=== PATIENT | female | born 1995 | race Caucasian/White ===

== ENCOUNTER 2022-07-12 12:46 | Emergency (ER) | payer OTHER, MEDICAID, SELFPAY ==
[2022-07-12 12:56] VITALS: BP 196/142; PULSE 102; RESP 20; O2SAT 98
[2022-07-12 13:00] VITALS: BP 195/125; PULSE 94; RESP 15; O2SAT 98
[2022-07-12 13:04] VITALS: BP 196/142; PULSE 102; RESP 18; TEMP 36.6; O2SAT 99; BMI 28.3
--- NOTE | 2022-07-12 13:21 | ED.EXTPRO ---
HPI - Extremity Problem General Chief complaint: Extremity Problem,Nontraumatic Stated complaint: numb both hands RT armpit swollen T-14 Time Seen by Provider: 07/12/22 13:14 Source: patient Mode of arrival: Ambulatory Limitations: no limitations History of Present Illness HPI Narrative: The patient complains of bilateral, intermittent, finger tingling. He occasionally has tingling, awakening from sleep. He works at a [employer]. He developed tingling at work. He occasionally has tingling at rest. He is right-hand dominant. There is no significant difference in symptoms between the left and right hand. He is no significant neck pain associated with a tingling. He does have pain in the right axilla. There is no weakness to the upper extremities. He has a prior history of trauma/concussion. No obvious history of neck injury. Related Data Allergies Allergy/AdvReac Type Severity Reaction Status Date / Time No Allergy Information Allergy Verified 07/12/22 13:04 Available Review of Systems Review of Systems ROS Unobtainable: All systems reviewed & are unremarkable except as noted in HPI and below Patient History Social History Smoking Status: Current every day smoker Smoking Status: Current every day smoker tobacco type: vaping Substance Use Type: does not use Exam Initial Vital Signs Initial Vital Signs: Vital Signs Temperature 97.8 F 07/12/22 13:04 Pulse Rate 102 H 07/12/22 13:04 Respiratory Rate 18 07/12/22 13:04 Blood Pressure 196/142 H 07/12/22 13:04 Pulse Oximetry 99 07/12/22 13:04 Oxygen Delivery Method Room Air 07/12/22 13:04 Const General: cooperative, healthy appearing and comfortable [facility] Head: normal to inspection, normocephalic and atraumatic Neck Neck: normal visual inspection, full ROM and No tender Back/Spine/Pelvis Back: normal to inspection and No back tenderness Skin General: no rashes or lesions noted Neuro General: patient alert, patient awake, patient oriented x3 and no focal motor deficits Sensory Exam: no sensory deficits noted Other: Tinel's is equivocal in both upper extremities. Phalen's test is negative. Extrem General: normal to inspection and full ROM Other: No palpable abnormalities in the right axilla where he complained of pain. No masses. No laxity to the right shoulder. No restriction of motion. Psych Mental Status: mental status grossly normal Course Course Course Narrative: The patient was placed in bilateral wrist splints for CTS. He is neurovascularly intact with splints in place. The splints were placed by his nurse. The patient is on BP meds. He had not taken his medications prior to arrival, he was extremely hypertensive. His blood pressure is improving with the patient taking his home medications. We discussed being compliant with medications and reviewing his blood pressure treatment when he sees his doctor regarding his wrists. Orders Ordered: ED Orders 07/12/22 13:09 EKG-12 Lead Routine Vital Signs Vital signs: Vital Signs - 8 hr 07/12/22 13:04 Temperature 97.8 F Pulse Rate 102 H Respiratory Rate 18 Blood Pressure 196/142 H Pulse Oximetry 99 Oxygen Delivery Method Room Air Discharge Plan Departure Patient Disposition: Home Clinical Impression: Bilateral carpal tunnel syndrome, Benign essential HTN Instructions: Carpal Tunnel Syndrome Activity Restrictions/Additional Instructions: Use the splints when working and when sleep. Advil 2 tabs every 6 hours. If this does not help, talk to your PCM about a dose of steroids. Talk to your PCM about nerve conduction studies on both arms. If you develop severe, persistent, numbness and weakness in her arms, you need additional evaluation of your neck. Return here as needed. Referrals: Pauline Venegas ARNP [Primary Care Provider] - Stand Alone Forms: Patient Portal/API, Work Release Note
[2022-07-12 13:30] VITALS: PULSE 96; RESP 21; O2SAT 97
[2022-07-12 13:31] VITALS: BP 222/122; PULSE 92; RESP 17; O2SAT 97
== END 2022-07-12 14:09 | disposition home or self-care (01) ==
PROVIDERS: Emergency Provider Emergency Medicine; PCP Nurse Practitioner Family
DX: G56.03 Carpal tunnel syndrome, bilateral upper limbs (principal); I10 Essential (primary) hypertension; F17.200 Nicotine dependence, unspecified, uncomplicated
CPT/HCPCS: 93005; 99281; 99282

== ENCOUNTER 2023-05-10 12:10 | Emergency (ER) | payer OTHER, MEDICAID, SELFPAY ==
[2023-05-10 12:12] VITALS: BP 205/125; PULSE 91; RESP 14; TEMP 37.2; O2SAT 99; BMI 28.3
--- NOTE | 2023-05-10 12:24 | ED_ITS ---
<Statement entered by Alvarez Diggs MD - 05/10/23 18:12> I was immediately available in the department for consultation. Documentation has been reviewed. I agree with assessment and plan. HPI - General Adult General Chief complaint: Neck Pain/Injury Stated complaint: severe pain rt side of head and neck Time Seen by Provider: 05/10/23 12:15 History of Present Illness HPI narrative: 27-year-old female presents to the ED with 9 months of right-sided neck pain and headache. Patient states that she is unable to go to her PCP due to financial reasons and therefore presents to the ED. patient has not been evaluated until now for this problem. Patient has been taking Excedrin with no relief. Patient reports exacerbation of the pain with head movements and turning to the right. Patient states that this 1st started when she fell back 9 months ago from a mechanical fall. Patient is also hypertensive and has not been taking losartan, having run out of the prescription. Patient did restart the losartan 3 days ago. Patient also takes exogenous testosterone. Related Data Previous Rx's Medication Instructions Recorded cyclobenzaprine 10 mg tablet 10 mg PO TID PRN muscle spasm 7 05/10/23 days #21 tabs Allergies Allergy/AdvReac Type Severity Reaction Status Date / Time No Allergy Information Allergy Verified 05/10/23 12:22 Available Review of Systems Constitutional Constitutional: Denies chills, Denies fatigue, Denies fever(s), Denies frequent falls, Reports headache(s), Denies lethargy and Denies weakness Eyes Eyes: Denies change in vision, Denies eye discharge, Denies irritation and Denies loss of vision ENT Ears, Nose, Mouth, and Throat: Denies change in voice, Denies dizziness, Reports headache(s), Reports neck pain, Denies sore throat and Denies throat swelling Cardiovascular Cardiovascular: Denies chest pain, Denies irregular heart rhythm, Denies lightheadedness, Denies palpitations, Denies dyspnea, Denies dyspnea on exertion and Denies orthopnea Respiratory Respiratory: Denies cough, Denies dyspnea, Denies dyspnea on exertion and Denies wheezing Gastrointestinal Gastrointestinal: Denies abdominal pain, Denies change in bowel habits, Denies diarrhea, Denies nausea and Denies vomiting Musculoskeletal Musculoskeletal: Reports neck pain and Denies numbness Integumentary/Breasts Skin/Breast: Denies pruritus, Denies erythema, Denies rash and Denies wounds Neurologic Neurologic: Denies behavioral changes, Denies confusion, Denies dizziness, Denies frequent falls, Reports headache(s), Denies loss of vision, Denies numbness and Denies weakness Psychiatric Psychiatric: Denies anxiety, Denies behavioral changes, Denies confusion, Denies depression, Denies homicidal ideation and Denies suicidal ideation Endocrine Endocrine: Denies fatigue, Denies flushing and Denies palpitations Hematologic/Lymphatic Hematologic/Lymphatic: Denies easy bruising Allergic/Immunologic Allergic/Immunologic: Denies urticaria, Denies throat swelling and Denies wheezing Patient History Social History Smoking Status: Current every day smoker Smoking Status: Current every day smoker tobacco type: vaping Substance Use Type: does not use Exam Narrative Exam Narrative: Const General:?cooperative, healthy appearing and comfortable HENVT Head:?normal to inspection Ears:?hearing grossly normal bilaterally Nose:?external nose normal Face and sinus:?normal facial exam and sinuses nontender Mouth:?oral mucosae normal Throat:?posterior oropharynx normal Eyes General:?appearance normal, both eyes and all related structures Neck Neck:?normal visual inspection and no lymphadenopathy noted Resp Effort & Inspection:?normal respiratory effort Auscultation:?clear to auscultation bilaterally Cardio Rate:?regular rate Rhythm:?regular rhythm Neuro General:?patient alert, patient awake and patient oriented x3 Initial Vital Signs Initial Vital Signs: Vital Signs Temperature 99.0 F 05/10/23 12:12 Pulse Rate 91 H 05/10/23 12:12 Respiratory Rate 14 05/10/23 12:12 Blood Pressure 205/125 H 05/10/23 12:12 Pulse Oximetry 99 05/10/23 12:12 Oxygen Delivery Method Room Air 05/10/23 12:12 Course Vital Signs Vital signs: Vital Signs - 8 hr 05/10/23 12:12 05/10/23 12:57 Temperature 99.0 F Pulse Rate 91 H 96 H Respiratory Rate 14 12 Blood Pressure 205/125 H 200/136 H Pulse Oximetry 99 97 Oxygen Delivery Method Room Air Room Air Medical Decision Making MDM Narrative Medical decision making narrative: 27-year-old female presents to the ED with 9 months of right-sided neck pain and headache. No red flag symptoms. Patient's symptoms most consistent with a musculoskeletal sprain/strain of the neck versus primary headache. Recommend Flexeril, ibuprofen, lidocaine patches. Recommend follow-up with PCP for further evaluation and PT referral as well as monitoring of blood pressure. Patient was hypertensive in the ED today with a blood pressure of 205/125. Patient does seem to run at that baseline. Patient is asymptomatic. No concern for hypertensive emergency. Patient agrees to follow-up with his PCP as soon as possible and continue taking his antihypertensive. Return precautions were discussed with patient. Patient verbalized understanding. Medical records reviewed: Yes Discharge Plan Departure Patient Disposition: Home Clinical Impression: Strain of neck muscle Qualifiers: Encounter type: initial encounter Qualified Code(s): S16.1XXA - Strain of muscle, fascia and tendon at neck level, initial encounter Headache Qualifiers: Headache type: unspecified Headache chronicity pattern: acute headache Intractability: not intractable Qualified Code(s): R51.9 - Headache, unspecified Instructions: DI for Headache, DI for Neck Pain Activity Restrictions/Additional Instructions: You were evaluated in the ED today for a headache and neck pain. It appears that your symptoms could be due to a migraine headache and a musculoskeletal sprain/strain of the neck. You are being prescribed cyclobenzaprine which is a muscle relaxant to help with the neck pain. Please also take ibuprofen 800 mg every 8 hours with food for the headache and neck pain. You may apply [id number] lidocaine patches for relief. Please follow-up with your PCP as soon as possible for further evaluation and physical therapy referral. Return to the ED if you have worsening symptoms, persistent vomiting, vision changes. Prescriptions: New cyclobenzaprine 10 mg tablet 10 mg PO TID PRN (Reason: muscle spasm) 7 Days Qty: 21 0RF Referrals: Pauline Venegas ARNP [Primary Care Provider] - Stand Alone Forms: Patient Portal/API
[2023-05-10 12:57] VITALS: BP 200/136; PULSE 96; RESP 12; O2SAT 97
== END 2023-05-10 13:00 | disposition home or self-care (01) ==
PROVIDERS: Emergency Provider Student in an Organized Health Care Education/Training Program; PCP Nurse Practitioner Family
DX: S16.1XXA Strain of muscle, fascia and tendon at neck level, initial encounter (principal); R51.9 Headache, unspecified
CPT/HCPCS: 99281

== ENCOUNTER 2023-05-27 02:01 | Emergency (ER) | payer OTHER, MEDICAID, SELFPAY ==
--- NOTE | 2023-05-27 02:09 | ED.GENADULT ---
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 Was concerned that he had a bladder infection with some cloudy urine, has been taking azo and felt that that was improving and then with the developing right achy flank pain described as a 6/10 he comes in for further evaluation. He was told a year ago that he incidentally had kidney stones. He does have a history of hypertension, did not take blood pressure medications today. Describes low-grade fever but no specific cough. No nausea vomiting or diarrhea. He notes that he has not had menstrual cycles for a number of years but does still ovaries. Related Data Previous Rx's Medication Instructions Recorded sulfamethoxazole 800 1 tab PO BID #14 tabs 05/27/23 mg-trimethoprim 160 mg tablet (Bactrim DS) Allergies Allergy/AdvReac Type Severity Reaction Status Date / Time No Allergy Information Allergy Verified 05/10/23 12:22 Available Review of Systems Review of Systems Narrative: Pertinent positive and negative findings as per HPI Patient History Medical History (Updated 05/27/23 @ 03:16 by Melina Cunningham MD) Hypertension History of kidney stones Trans-sexualism with unspecified sexual history Social History Smoking Status: Current every day smoker Smoking Status: Current every day smoker tobacco type: vaping alcohol intake frequency: a few times a week Substance Use Type: does not use Exam Narrative Exam Narrative: General: Healthy appearing, in no acute distress. Able to give a complete and coherent history. Well-nourished well-developed HEENT: Moist mucous membranes, normal sclera with reactive pupils, Respiratory: Lungs are clear to auscultation, no wheezing no rales no rhonchi. Full and symmetrical air movement Cardiac: Regular rate and rhythm no murmurs no bruits Abdomen: Soft, mild right lower quadrant tenderness without rebound or guarding, good bowel tones, mild right flank pain Skin: Mildly diaphoretic, no rashes Neurologic: Grossly neurologically intact with no obvious asymmetries or abnormalities Extremities: No trauma, well perfused Psych: Cooperative, appropriate insight and affect Initial Vital Signs Initial Vital Signs: Vital Signs Temperature 97.5 F L 05/27/23 02:25 Pulse Rate 113 H 05/27/23 02:25 Respiratory Rate 16 05/27/23 02:25 Blood Pressure 216/122 H 05/27/23 02:25 Pulse Oximetry 98 05/27/23 02:25 Oxygen Delivery Method Room Air 05/27/23 02:25 Course Orders Ordered: ED Orders 05/27/23 02:27 CT kidney ureter bladder (KUB) Stat 05/27/23 02:30 Complete Blood Count AUTO DIFF Stat Comprehensive Metabolic Panel Stat Urinalysis and Microscopic Stat Sodium Chloride (Normal Saline 0.9%) 1,000 mls @ 1,000 mls/hr IV BOLUS ONE Stop: 05/27/23 03:19 Last Admin: 05/27/23 02:36 Dose: 1,000 mls/hr Documented By: Discontinued Medications Ketorolac Tromethamine (Ketorolac 30 Mg/Ml Vial) 15 mg IV NOW ONE Stop: 05/27/23 02:21 Last Admin: 05/27/23 02:36 Dose: 15 mg Documented By: Vital Signs Vital signs: Vital Signs - 8 hr 05/27/23 02:25 05/27/23 02:49 05/27/23 02:50 Temperature 97.5 F L Pulse Rate 113 H 109 H 107 H Respiratory Rate 16 Blood Pressure 216/122 H Pulse Oximetry 98 96 97 Oxygen Delivery Method Room Air Room Air Room Air 05/27/23 02:50 Temperature Pulse Rate Respiratory Rate Blood Pressure 185/110 H Pulse Oximetry Oxygen Delivery Method Medical Decision Making Lab Data 05/27/23 02:30 05/27/23 02:30 Labs: Lab Results 05/27/23 Range/Units 02:30 WBC 14.4 H (4.5-11.0) X10^3/uL RBC 4.94 (4.0-5.2) X10^6/uL Hgb 14.2 (12.0-16.0) g/dL Hct 40.9 (36-46) % MCV 82.9 (80-100) fL MCH 28.7 (26-34) PG MCHC 34.6 (30-36) % RDW 13.5 (11.6-14.8) % Plt Count 280 (150-400) X10^3/uL Neut % (Auto) 75.4 H (50-75) % Lymph % (Auto) 11.8 L (25-40) % [place] % (Auto) 11.0 (3-14) % Eos % (Auto) 1.4 L (2-4) % Baso % (Auto) 0.4 (0-2) % Neut # (Auto) 40589 H (1993-0279) /uL Lymph # (Auto) 1700 (0549-5334) /uL [place] # (Auto) 1600 H (0-900) /uL Eos # (Auto) 200 (0-450) /uL Baso # (Auto) 100 (0-100) /uL Sodium 137 (137-145) mmol/L Potassium 3.4 (3.4-5.1) mmol/L Chloride 103 (98-107) mmol/L Carbon Dioxide 25 (22-32) mmol/L BUN 15 (7-17) mg/dL Creatinine 0.92 (0.52-1.04) mg/dL Estimated GFR > 60 (>60) mL/min BUN/Creatinine Ratio 16.3 (6-22) Glucose 105 H (70-100) mg/dL Calcium 9.5 (8.4-10.2) mg/dL Total Bilirubin 1.1 (0.2-1.3) mg/dL AST 31 (14-36) IU/L ALT 45 H (<35) IU/L Alkaline Phosphatase 81 (38-126) U/L Total Protein 8.1 (6.3-8.2) g/dL Albumin 4.5 (3.5-5.0) g/dL Globulin 3.6 (1.7-4.1) g/dL Albumin/Globulin Ratio 1.3 (1.0-2.8) Urine Color Yellow Urine Appearance Clear Urine pH 7.5 (4.5-8.0) Ur Specific [place] 1.010 (1.000-1.035) Urine Protein 2+ H (Negative) Urine Glucose (UA) Trace H (Negative) g/dL Urine Ketones Negative (NEGATIVE) Urine Occult Blood 3+ H (Negative) Urine Nitrate Positive H (Negative) Urine Bilirubin Negative (NEGATIVE) Urine Urobilinogen 1.0 (0.2) E.U./dL Ur Leukocyte Esterase 3+ H (NEGATIVE) Point of Care Testing Test Results Negative Urine Dip Bedside Urine Glucose Negative Bedside Urine Bilirubin - Negative Bedside Urine Ketone - Negative Urine Specific [place] 1.005 Bedside Urine Occult Blood +++ Bedside Urine pH 7.0 Bedside Urine Protein + 30 Bedside Urine Urobilinogen - Negative Bedside Urine Nitrite + Positive Bedside Urine Leukocytes +++ 500 Esterase Point of care testing: Point of Care Testing Test Results Negative Urine Dip Bedside Urine Glucose Negative Bedside Urine Bilirubin - Negative Bedside Urine Ketone - Negative Urine Specific [place] 1.005 Bedside Urine Occult Blood +++ Bedside Urine pH 7.0 Bedside Urine Protein + 30 Bedside Urine Urobilinogen - Negative Bedside Urine Nitrite + Positive Bedside Urine Leukocytes +++ 500 Esterase MDM Narrative Medical decision making narrative: CC: Right flank pain Complicating co-morbidities: Trans male still with ovaries and uterus Data collected from: patient Differential considered: Kidney stone, pyelonephritis, urinary tract infection, ovarian cyst, appendicitis, muscle strain Exam documented above, pertinent findings include: Mild tenderness in the right lower quadrant and right flank without rebound or guarding Lab Test results independently reviewed as above. Pertinent findings: Urine is positive for bloods, nitrites leukocyte esterase. Urine test is negative CBC is notable for leukocytosis at 14.4 minimally elevated neutrophil percentage Chemistries are reassuring Imaging studies independently reviewed: CT scan shows some mild hydronephrosis on the right side but no obvious stone. Official radiology read also suggests perinephric/periureteral inflammatory changes likely related to recently passed stone or infection. No evidence of diverticulitis, bowel obstruction or appendicitis Treatments: Pain is significantly improved after fluids and Toradol Discussion: 27-year-old trans gentleman with dysuria, cloudy urine and right flank pain. Likely combination of both stone and developing infection. I am not seeing evidence of pyelonephritis, infection behind and obstructed ureter, sepsis or reasons for additional imaging or hospitalization today. Will place him on 7 days of Bactrim. Review of labs CT scan and recommendations done with the patient and his partner. Questions are answered and he is safe for discharge Discharge Plan Departure Patient Disposition: Home Clinical Impression: Kidney stone Urinary tract infection Qualifiers: Urinary tract infection type: acute cystitis Hematuria presence: with hematuria Qualified Code(s): N30.01 - Acute cystitis with hematuria Instructions: DI for Kidney Stones, DI for Urinary Tract Infection (UTI) Activity Restrictions/Additional Instructions: Thank you for coming in today I suspect you did actually pass a small kidney stone and simultaneously have a bladder infection. At this point, there is no indication that a stone is still obstructing or causing problems. You received good pain relief with the fluids and Toradol given in the emergency department. I am going to place you on 7 days of Bactrim, sulfa antibiotic that will treat bladder infection and if this is beginning to spread to your kidney we will also treat pyelonephritis. Your lab work does not suggest overwhelming infection and there is no indication that you need to be hospitalized today. If you find that you are getting worse or develop any new symptoms, please feel free to return to the emergency department for further evaluation. Prescriptions: New sulfamethoxazole-trimethoprim [Bactrim DS] 800-160 mg tablet 1 tab PO BID Qty: 14 0RF Referrals: Pauline Venegas ARNP [Primary Care Provider] - Stand Alone Forms: Patient Portal/API
[2023-05-27 02:25] VITALS: BP 216/122; PULSE 113; RESP 16; TEMP 36.4; O2SAT 98; BMI 29.2
--- NOTE | 2023-05-27 02:27 | DI.CT.S_ITS ---
PROCEDURE: CT KIDNEY URETER BLADDER (KUB) INDICATIONS: right flank pain TECHNIQUE: Axial sections were acquired from the lung bases to the pubic symphysis. Coronal and sagittal reformats were performed. For radiation dose reduction, the following was used: automated exposure control, adjustment of mA and/or kV according to patient size. COMPARISON: None. FINDINGS: Image quality: Diagnostic. Lower Chest: No significant findings. URINARY: Right Kidney: Mild hydronephrosis. Punctate renal calcification. Right Ureter: Very minimal appearance ureteral prominence. Mild appearance of proximal periureteral inflammatory change. Left Kidney: No stones or hydronephrosis. Left Ureter: No hydroureter. Bladder: Normal wall thickness. No stones. ABDOMEN: Liver: No contour-deforming solid mass. Gallbladder: No radiopaque gallstones or wall thickening. Biliary ducts: No biliary dilation. Pancreas: No ductal dilation. Spleen: Size is within normal limits. Adrenal Glands: No adrenal nodules. Stomach and Bowel: Normal colonic caliber, without significant wall thickening. Hiatal hernia. Peritoneum: No abnormal intraperitoneal fluid. No free air. Ventral Wall: Trace fat containing hernia. Abdominal Nodes: No enlarged retroperitoneal or mesenteric lymph nodes. Vessels: Aorta and inferior vena cava are normal in size. PELVIS: Pelvic Organs: Unremarkable. Pelvic Nodes: Unremarkable. Miscellaneous: No inguinal hernias are seen. Bones: Unremarkable. IMPRESSION: There is minimal to mild appearance of right hydronephrosis and hydroureter with stranding. This could be related to infection or recently passed stone. No bladder calculi. Punctate nonobstructing right renal calculus. The above findings are concordant with preliminary report. Dictated by: Pam Kemp M.D. on 05/27/2023 at 8:16 Approved by: Pam Kemp M.D. on 05/27/2023 at 8:22
[2023-05-27] MEDS: KETOROLAC 30 MG/ML VIAL 15 MG IV (02:36)
[2023-05-27] MEDS: SODIUM CHLORIDE 0.9% 1,000 ML 1000 ML IV (02:36)
[2023-05-27 02:46] LABS: Appearance Urine UA CLEAR; Bilirubin Urine UA NEGATIVE (NEGATIVE); Color Urine UA YELLOW; Glucose Urine UA TRACE g/dL (Negative); Ketones Urine UA NEGATIVE (NEGATIVE); Leukocyte Esterase Urine UA 3+ (NEGATIVE); Nitrite Urine UA POSITIVE (Negative); Occult Blood Urine UA 3+ (Negative); Protein Urine UA 2+ (Negative)
[2023-05-27 02:49] VITALS: PULSE 109; O2SAT 96
[2023-05-27 02:49] LABS: pH Urine UA 7.5 (4.5-8.0)
[2023-05-27 02:50] VITALS: BP 185/110; PULSE 107; O2SAT 97
[2023-05-27 02:53] LABS: Alanine Aminotransferase 45 IU/L (<35); Albumin 4.5 g/dL (3.5-5.0); Albumin Globulin Ratio 1.3 (1.0-2.8); Alkaline Phosphatase 81 U/L (38-126); Aspartate Aminotransferase 31 IU/L (14-36); BUN Creatinine Ratio 16.3 (6-22); Bilirubin Total 1.1 mg/dL (0.2-1.3); Blood Urea Nitrogen 15 mg/dL (7-17); Calcium 9.5 mg/dL (8.4-10.2); Carbon Dioxide 25 mmol/L (22-32); Chloride 103 mmol/L (98-107); Estimated Glomerular Filt Rate > 60 mL/min (>60); Globulin 3.6 g/dL (1.7-4.1); Glucose 105 mg/dL (70-100); HEMOLYSIS 31 (0-50); Potassium 3.4 mmol/L (3.4-5.1); Sodium 137 mmol/L (137-145); Total Protein 8.1 g/dL (6.3-8.2)
[2023-05-27 02:59] LABS: Add Manual Diff / Slide Review NO; Basophils Absolute Auto 100 /uL (0-100); Basophils Percent Auto 0.4 % (0-2); Eosinophils Absolute Auto 200 /uL (0-450); Eosinophils Percent Auto 1.4 % (2-4); Hematocrit 40.9 % (36-46); Hemoglobin 14.2 g/dL (12.0-16.0); Lymphocytes Absolute Auto 1700 /uL (1100-4500); Lymphocytes Percent Auto 11.8 % (25-40); Mean Corpuscular HGB Conc 34.6 % (30-36); Mean Corpuscular Hemoglobin 28.7 PG (26-34); Mean Corpuscular Volume 82.9 fL (80-100); Monocytes Absolute Auto 1600 /uL (0-900); Neutrophils Absolute Auto 10900 /uL (1500-7000); Neutrophils Percent Auto 75.4 % (50-75); Platelet Count 280 X10^3/uL (150-400); Red Blood Cell Count 4.94 X10^6/uL (4.0-5.2); Red Cell Distribution Width 13.5 % (11.6-14.8); White Blood Cell Count 14.4 X10^3/uL (4.5-11.0)
[2023-05-27 03:08] LABS: RBC Urine 1-5/HPF (0-5/HPF); Urine Volume 10mL (spun); WBC Urine 5-10/HPF (0-5/HPF)
[2023-05-27 03:09] LABS: Bacteria Urine Many (>30); Culture Indicated Urine Specimen Cultured; Squamous Epithelial Cell Urine None Seen (0-5/HPF)
[2023-05-27] MEDS: TRIMETH/SULFA 160/800 (DS) TABLET 1 TAB PO (03:22)
--- NOTE | 2023-05-27 15:40 | PC.NURSE ---
Pt called stating that he forgot he had an allergy to Bactrim which was prescribed last night. Discussed with Dr. Kim who prescribed cefpodoxime 200 mg po bid x 7 days. Called into [facility]. Called Pt back to review new meds. Verbalized understanding. Encouraged to f/u as needed and indicated and return for any needs, concerns, worsening of symptoms.
== END 2023-05-27 03:31 | disposition home or self-care (01) ==
PROVIDERS: Emergency Provider Emergency Medicine; PCP Nurse Practitioner Family
DX: N20.0 Calculus of kidney (principal); N30.01 Acute cystitis with hematuria
CPT/HCPCS: 36415; 74176; 80053; 81001; 81003; 81025; 85025; 87077; 87086; 87186; 96361; 96374; 99284; J1885